=== PATIENT | male | born 1995 | race Caucasian/White ===

== ENCOUNTER → 2017-03-26 | Outpatient (CLI) | payer BC ==
--- NOTE | 2017-03-26 17:42 | REP ---
RIGHT 3RD DIGIT: Four views of the right 3rd digit were performed. There is an avulsion fracture at the anterior base of the middle phalanx which is nondisplaced. I see no other evidence of acute fracture, dislocation, or intrinsic bone disease. Signed by Kaiser Wasserman MD 03/27/2017 09:18 A
== END ==
LOC: M WUC 17:01
PROVIDERS: ATTEND Physician Assistant
DX: M79.644 Pain in right finger(s) (principal)

== ENCOUNTER → 2017-06-18 | Outpatient (CLI) | payer BC ==
[2017-06-18 16:33] LABS: BASO % 0.5 % (0.0-1.0); EOS # 0.1 10^3/uL (0.0-0.50); HEMATOCRIT 51.9 % (42.0-52.0); HEMOGLOBIN 17.4 g/dl (14.0-18.0); IMMATURE GRANULOCYTE % 0.2 % (0-3.0); LYMPH # 2.5 10^3/uL (1.5-6.5); LYMPH % 28.8 % (24.0-44.0); MEAN CORPUSCULAR HEMOGLOBIN 30.5 pg (27.0-33.0); MEAN CORPUSCULAR HGB CONC 33.5 g/dl (32.0-36.5); MEAN CORPUSCULAR VOLUME 90.9 fl (80.0-96.0); MONO # 0.7 10^3/uL (0.0-0.8); MONO % 7.7 % (0.0-5.0); NEUTROPHILS # 5.4 10^3/uL (1.8-7.7); NEUTROPHILS % 61.8 % (36.0-66.0); PLATELET COUNT, AUTOMATED 330 10^3/uL (150-450); RED BLOOD COUNT 5.71 10^6/uL (4.30-6.10); RED CELL DISTRIBUTION WIDTH 12.8 % (11.5-14.5); WHITE BLOOD COUNT 8.8 10^3/uL (4.0-10.0)
[2017-06-18 19:27] LABS: ALBUMIN 4.7 GM/DL (3.2-5.2); ALBUMIN/GLOBULIN RATIO 1.42 (1.00-1.93); ALKALINE PHOSPHATASE 84 U/L (45-117); ALT/SGPT 25 U/L (12-78); ANION GAP 8 MEQ/L (8-16); AST/SGOT 12 U/L (7-37); BILIRUBIN,TOTAL 0.4 MG/DL (0.2-1.0); BLOOD UREA NITROGEN 13 MG/DL (7-18); CARBON DIOXIDE LEVEL 26 MEQ/L (21-32); CHLORIDE LEVEL 107 MEQ/L (98-107); CREATININE FOR GFR 0.78 MG/DL (0.70-1.30); FREE T4 1.39 NG/DL (0.76-1.46); GLOMERULAR FILTRATION RATE > 60.0 (>60); GLUCOSE, FASTING 89 MG/DL (70-100); POTASSIUM SERUM 4.2 MEQ/L (3.5-5.1); SODIUM LEVEL 141 MEQ/L (136-145)
[2017-06-19 08:59] LABS: CONTROL LINE MONO INT CTR LINE PRESENT; MONO SCRN NEGATIVE (NEGATIVE)
[2017-06-21 00:07] LABS: EBV VIRAL CAPSID AG IgM <36.0 U/mL (0.0-35.9)
[2017-06-21 00:07] LABS: EBV VIRAL CAPSID AG IgG 61.8 U/mL (0.0-17.9)
== END ==
LOC: M WUC 12:18
DX: R53.83 Other fatigue (principal)
CPT/HCPCS: 84443

== ENCOUNTER → 2018-05-13 | Outpatient (REF) | payer BC ==
[2018-05-13 17:42] LABS: CHLAMYDIA DNA AMPLIFICATION NEGATIVE (NEGATIVE); GC DNA AMPLIFICATION NEGATIVE (NEGATIVE)
== END ==
LOC: M LAB REF 14:42
PROVIDERS: ATTEND Physician Assistant
DX: R30.0 Dysuria (principal)

== ENCOUNTER 2021-07-22 11:22 | Emergency (ER) | payer OTHER, BC ==
[~2021-07-22] VITALS: Ht 167.6 cm; Wt 97.7 kg
[2021-07-22] MEDS ORDERED: methocarbamoL 750 MG TAB PO ONE (14:05)
[2021-07-22] MEDS ORDERED: KETOROLAC 60MG 2ML VIAL IM ONE (14:05)
[2021-07-22] MEDS ORDERED: NAPR-837 PO (15:51)
[2021-07-22] MEDS ORDERED: METH-1165 PO (15:51)
[2021-07-22] MEDS ORDERED: ANEC4CRE3 TOP (15:51)
[2021-07-22 16:17] VITALS: BP 128/90
== END 2021-07-22 16:29 | disposition home or self-care (01) ==
LOC: M ED 11:22
DX: S16.1XXA Strain of muscle, fascia and tendon at neck level, initial encounter (principal); V49.49XA Driver injured in collision with other motor vehicles in traffic accident, initial encounter; Y92.410 Unspecified street and highway as the place of occurrence of the external cause; R07.9 Chest pain, unspecified; F17.210 Nicotine dependence, cigarettes, uncomplicated
CPT/HCPCS: 70450; 71101; 72125; 96372; 99283; J1885

== ENCOUNTER → 2021-10-05 | Outpatient (CLI) | payer BC ==
[~2021-10-05] MED LIST: ANEC4CRE3 TOP; METH-1165 PO; NAPR-837 PO
== END ==
LOC: M RAD 08:52
DX: D37.09 Neoplasm of uncertain behavior of other specified sites of the oral cavity (principal)

== ENCOUNTER → 2021-10-10 | Outpatient (CLI) | payer BC | LOC: M RAD 12:46 | DX: D37.09 Neoplasm of uncertain behavior of other specified sites of the oral cavity (principal) ==

== ENCOUNTER 2022-08-17 11:53 | Emergency (ER) | payer BC ==
[~2022-08-17] VITALS: Ht 167.6 cm; Wt 91.2 kg
[2022-08-17] MEDS ORDERED: KETOROLAC 60MG 2ML VIAL IM ONE (12:55)
[2022-08-17 13:43] VITALS: BP 161/78
== END 2022-08-17 13:45 | disposition home or self-care (01) ==
LOC: M ED 11:53
DX: S63.522A Sprain of radiocarpal joint of left wrist, initial encounter (principal); Y04.0XXA Assault by unarmed brawl or fight, initial encounter; F10.10 Alcohol abuse, uncomplicated; Y92.410 Unspecified street and highway as the place of occurrence of the external cause
CPT/HCPCS: 73110; 73130; 96372; 99284; J1885

== ENCOUNTER → 2022-08-29 | Outpatient (CLI) | payer BC | LOC: M RAD 13:53 | PROVIDERS: ATTEND Physician Assistant | DX: S52.592D Other fractures of lower end of left radius, subsequent encounter for closed fracture with routine healing (principal); M25.532 Pain in left wrist ==

== ENCOUNTER → 2022-08-29 | Outpatient (CLI) | payer BC | LOC: M SOG 08:45 | PROVIDERS: ATTEND Physician Assistant | DX: S52.592D Other fractures of lower end of left radius, subsequent encounter for closed fracture with routine healing (principal) ==

== ENCOUNTER → 2022-09-06 | Outpatient (REF) | payer BC ==
[2022-09-06 17:35] LABS: HEMATOCRIT 47.3 % (42.0-52.0); HEMOGLOBIN 15.8 g/dl (13.5-17.5); MEAN CORPUSCULAR HEMOGLOBIN 30.4 pg (27.0-33.0); MEAN CORPUSCULAR HGB CONC 33.4 g/dl (32.0-36.5); PLATELET COUNT, AUTOMATED 288 10^3/uL (150-450); WHITE BLOOD COUNT 7.6 10^3/uL (4.0-10.0)
[2022-09-06 17:57] LABS: ALKALINE PHOSPHATASE 78 U/L (46-116); ALT/SGPT 26 U/L (7.0-40); AST/SGOT 21 U/L (<34); BILIRUBIN,TOTAL 0.3 MG/DL (0.3-1.2); BLOOD UREA NITROGEN 13 MG/DL (9-23); CALCIUM LEVEL 8.5 MG/DL (8.5-10.1); CARBON DIOXIDE LEVEL 24 MMOL/L (20-31); CHLORIDE LEVEL 109 MMOL/L (98-107); CHOLESTEROL LEVEL 192 MG/DL (<200); CHOLESTEROL RISK RATIO 4.47 (<5); CREATININE FOR GFR 0.73 MG/DL (0.70-1.30); GLOMERULAR FILTRATION RATE > 60.0 (>60); GLUCOSE, FASTING 103 MG/DL (60-100); HDL CHOLESTEROL 42.9 MG/DL (>40); LDL CHOLESTEROL 115.9 MG/DL (<100); NON-HDL-C 149.1 MG/DL; POTASSIUM SERUM 4.6 MMOL/L (3.5-5.1); SODIUM LEVEL 140 MMOL/L (136-145); TOTAL PROTEIN 6.8 G/DL (5.7-8.2); TRIGLYCERIDES LEVEL 166 MG/DL (<150)
[2022-09-06 17:59] LABS: THYROID STIMULATING HORMONE 1.085 uIU/ML (0.55-4.78)
[2022-09-06 18:11] LABS: HEPATITIS B SURFACE ANTIGEN NEGATIVE (NEGATIVE)
[2022-09-08 07:07] LABS: HEPATITIS B CORE ANTIBODY IGG Negative (Negative)
== END ==
LOC: M LAB REF 16:35
PROVIDERS: ATTEND Physician Assistant
DX: Z11.59 Encounter for screening for other viral diseases (principal); Z13.220 Encounter for screening for lipoid disorders; Z13.1 Encounter for screening for diabetes mellitus; Z83.49 Family history of other endocrine, nutritional and metabolic diseases; Z11.3 Encounter for screening for infections with a predominantly sexual mode of transmission; Z72.51 High risk heterosexual behavior; E66.9 Obesity, unspecified

== ENCOUNTER → 2022-09-20 | Outpatient (REF) | payer BC ==
[2022-09-20 20:08] LABS: GC DNA AMPLIFICATION NEGATIVE (NEGATIVE)
== END ==
LOC: M LAB REF 16:12
PROVIDERS: ATTEND Physician Assistant
DX: Z11.3 Encounter for screening for infections with a predominantly sexual mode of transmission (principal)

== ENCOUNTER → 2022-09-20 | Outpatient (CLI) | payer BC | LOC: M SOG 08:58 | PROVIDERS: ATTEND Physician Assistant | DX: S52.502D Unspecified fracture of the lower end of left radius, subsequent encounter for closed fracture with routine healing (principal) ==

== ENCOUNTER → 2022-10-08 | Outpatient (CLI) | payer BC | LOC: M SOG 07:57 | PROVIDERS: ATTEND Physician Assistant | DX: S52.502D Unspecified fracture of the lower end of left radius, subsequent encounter for closed fracture with routine healing (principal) ==

== ENCOUNTER → 2022-10-18 | Outpatient (REF) | payer BC ==
[2022-10-18 19:11] LABS: GC DNA AMPLIFICATION NEGATIVE (NEGATIVE)
== END ==
LOC: M LAB REF 16:30
PROVIDERS: ATTEND Physician Assistant
DX: A56.2 Chlamydial infection of genitourinary tract, unspecified (principal)

== ENCOUNTER → 2024-06-10 | Outpatient (REF) | payer BC ==
[2024-06-10 21:20] LABS: Trichomonas vaginalis (AMP) NOT DETECTED (NEGATIVE)
[2024-06-10 21:43] LABS: GC DNA AMPLIFICATION NEGATIVE (NEGATIVE)
== END ==
LOC: M LAB REF 16:42
PROVIDERS: ATTEND Physician Assistant
DX: Z11.3 Encounter for screening for infections with a predominantly sexual mode of transmission (principal)

== ENCOUNTER 2024-06-20 14:18 | Inpatient (IN) | payer BC, OTHER ==
[~2024-06-20] VITALS: Ht 167.6 cm; Wt 101.8 kg
[~2024-06-20 14:18] MED LIST changes: +HYDROMORPHONE HCL 0.5 MG/ 0.5 ML SYRINGE IV PRN
[2024-06-20] MEDS ORDERED: ISOVUE-370 76% 100ML VIAL As Ordered ONE (16:46)
[2024-06-20 17:05] LABS: BASO % 0.5 % (0.0-1.0); EOS # 0.1 10^3/uL (0.0-0.5); EOS % 0.8 % (0.0-3.0); HEMATOCRIT 49.9 % (42.0-52.0); HEMOGLOBIN 17.4 g/dl (13.5-17.5); LYMPH # 3.4 10^3/uL (1.5-5.0); LYMPH % 44.5 % (24.0-44.0); MEAN CORPUSCULAR HEMOGLOBIN 31.5 pg (27.0-33.0); MEAN CORPUSCULAR HGB CONC 34.9 g/dl (32.0-36.5); MEAN CORPUSCULAR VOLUME 90.2 fl (80.0-96.0); MONO # 0.8 10^3/uL (0.0-0.8); MONO % 10.3 % (2.0-8.0); NEUTROPHILS # 3.4 10^3/uL (1.5-8.5); NEUTROPHILS % 43.6 % (36.0-66.0); PLATELET COUNT, AUTOMATED 344 10^3/uL (150-450); RED BLOOD COUNT 5.53 10^6/uL (4.30-6.10); WHITE BLOOD COUNT 7.7 10^3/uL (4.0-10.0)
[2024-06-20] MEDS: ONDANSETRON 4MG 2ML VIAL IV ONE (17:06)
[2024-06-20] MEDS: MORPHINE 4 MG/ML 1ML VIAL IV ONE (17:07)
[2024-06-20 17:19] LABS: INR 0.96; PROTHROMBIN TIME 13.1 SECONDS (12.5-14.5)
[2024-06-20 17:37] LABS: CK-MB VALUE MASS 2.6 NG/ML (<3.6)
[2024-06-20 17:38] LABS: BLOOD UREA NITROGEN 12 MG/DL (9-23); CALCIUM LEVEL 9.2 MG/DL (8.5-10.1); CARBON DIOXIDE LEVEL 24 MMOL/L (20-31); CHLORIDE LEVEL 106 MMOL/L (98-107); CREATININE FOR GFR 0.72 MG/DL (0.70-1.30); GLOMERULAR FILTRATION RATE > 60.0 (>60); GLUCOSE, FASTING 82 MG/DL (60-100); POTASSIUM SERUM 4.3 MMOL/L (3.5-5.1); SODIUM LEVEL 140 MMOL/L (136-145)
[2024-06-20 17:41] LABS: CPK CREATINE PHOSPHOKINASE 357 U/L (46-171); MB/CK RELATIVE INDEX 0.72 (< OR =4)
[2024-06-20] MEDS: HYDROMORPHONE HCL 0.5 MG/ 0.5 ML SYRINGE IV ONE (17:59)
[2024-06-20] MEDS ORDERED: HYDROMORPHONE HCL 0.5 MG/ 0.5 ML SYRINGE IV PRN (19:20)
[2024-06-20] MEDS ORDERED: MAALOX 30 ML SUSP *UDC PO PRN (19:40)
[2024-06-20] MEDS ORDERED: MOM 30ML SUSPENSION UDC PO PRN (19:40)
[2024-06-20] MEDS ORDERED: ACETAMINOPHEN 325 MG TAB PO PRN (19:40)
[2024-06-20] MEDS: HYDROMORPHONE HCL 0.5 MG/ 0.5 ML SYRINGE IV PRN (20:25)
[2024-06-20 21:30] VITALS: BP 152/102; TEMP 97.1; O2SAT 96
[2024-06-20 22:02] LABS: AMPHETAMINES LEVEL URINE NEGATIVE (NEGATIVE); BARBITURATES URINE NEGATIVE (NEGATIVE); BENZODIAZEPINES URINE NEGATIVE (NEGATIVE); COCAINE METABOLITE URINE NEGATIVE (NEGATIVE); METHADONE URINE NEGATIVE (NEGATIVE)
[2024-06-20 22:03] LABS: PHENCYCLIDINE URINE NEGATIVE (NEGATIVE)
[2024-06-20 22:04] LABS: CANNABINOIDS URINE POSITIVE (NEGATIVE); OPIATES URINE POSITIVE (NEGATIVE)
[2024-06-20] MEDS ORDERED: LEXA1TAB PO (22:29)
[2024-06-20] MEDS ORDERED: HOME MED LIST COMPLETE! XX SCH (22:30)
[2024-06-20] MEDS: NORCO, ANEXSIA 5/325MG TABLET (HYDROcodone/ACETAMINOPHEN) PO ONE (22:38)
[2024-06-20] MEDS: LORazepam 2 MG/ML 1ML VIAL IV STA (22:39)
[2024-06-20] MEDS: DOCUSATE SODIUM 100MG CAPSULE PO SCH (22:39)
[2024-06-20] MEDS: ENOXAPARIN 100MG/1ML SYRINGE (J1650 PER 10MG) SC SCH (22:40)
[2024-06-20] MEDS: LIDOCAINE 5% (LIDODERM) PATCH TD ONE (22:40)
[2024-06-21 00:50] VITALS: BP 147/87; TEMP 97; O2SAT 96
[2024-06-21] MEDS: NORCO, ANEXSIA 5/325MG TABLET (HYDROcodone/ACETAMINOPHEN) PO PRN (03:08)
[2024-06-21 03:10] VITALS: BP 148/94; TEMP 97.1; O2SAT 95
[2024-06-21 06:09] LABS: HEMATOCRIT 47.7 % (42.0-52.0); HEMOGLOBIN 16.3 g/dl (13.5-17.5); MEAN CORPUSCULAR HEMOGLOBIN 30.6 pg (27.0-33.0); MEAN CORPUSCULAR HGB CONC 34.2 g/dl (32.0-36.5); MEAN CORPUSCULAR VOLUME 89.7 fl (80.0-96.0); PLATELET COUNT, AUTOMATED 280 10^3/uL (150-450); RED BLOOD COUNT 5.32 10^6/uL (4.30-6.10); WHITE BLOOD COUNT 7.3 10^3/uL (4.0-10.0)
[2024-06-21 06:40] LABS: CHOLESTEROL RISK RATIO 6.03 (<5); HDL CHOLESTEROL 32.3 MG/DL (>40); LDL CHOLESTEROL 118.3 MG/DL (<100); NON-HDL-C 162.7 MG/DL
[2024-06-21 06:41] LABS: BLOOD UREA NITROGEN 11 MG/DL (9-23); CALCIUM LEVEL 8.9 MG/DL (8.5-10.1); CARBON DIOXIDE LEVEL 25 MMOL/L (20-31); CHLORIDE LEVEL 105 MMOL/L (98-107); CREATININE FOR GFR 0.72 MG/DL (0.70-1.30); GLOMERULAR FILTRATION RATE > 60.0 (>60); GLUCOSE, FASTING 97 MG/DL (60-100); POTASSIUM SERUM 4.1 MMOL/L (3.5-5.1); SODIUM LEVEL 138 MMOL/L (136-145)
[2024-06-21 06:43] LABS: THYROID STIMULATING HORMONE 2.175 uIU/ML (0.55-4.78)
[2024-06-21] MEDS: APIXABAN 5 MG TAB (ELIQUIS) PO SCH (08:12)
[2024-06-21 08:40] VITALS: BP 139/94; TEMP 98.2; O2SAT 97
[2024-06-21] MEDS: KETOROLAC 30 MG/ML 1ML VIAL IV PRN (09:25)
[2024-06-21] MEDS ORDERED: ELIQ5TAB PO (11:09)
[2024-06-21] MEDS ORDERED: HYDR-3715 PO (11:09)
[2024-06-21] MEDS ORDERED: NEUR300C PO (11:27)
[2024-06-21] MEDS ORDERED: LIDO1PAD TOP (11:27)
[2024-06-21] MEDS ORDERED: DICL100G10 TOP (11:27)
[2024-06-21] MEDS ORDERED: OXYC1TAB23 PO (11:27)
[2024-06-21] MEDS ORDERED: NARC1SPR NARES (11:27)
[2024-06-28] MEDS ORDERED: APIXABAN 5 MG TAB (ELIQUIS) PO SCH (09:00)
== END 2024-06-21 12:05 | disposition home or self-care (01) | DRG 197 ==
LOC: M ED 14:18 → M ED INP 19:36 → M MS4PR 06-21 08:32
PROVIDERS: ADMIT Student in an Organized Health Care Education/Training Program; ATTEND Student in an Organized Health Care Education/Training Program
DX: I82.622 Acute embolism and thrombosis of deep veins of left upper extremity (principal); K21.9 Gastro-esophageal reflux disease without esophagitis; K59.00 Constipation, unspecified

== ENCOUNTER → 2024-07-05 | Outpatient (CLI) | payer OTHER ==
[~2024-07-05] MED LIST changes: +DICL100G10 TOP; +ELIQ5TAB PO; +HYDR-3715 PO; -HYDROMORPHONE HCL 0.5 MG/ 0.5 ML SYRINGE IV PRN; +LEXA1TAB PO; +LIDO1PAD TOP; +NARC1SPR NARES; +NEUR300C PO; +OXYC1TAB23 PO
== END ==
LOC: M RAD 15:22
PROVIDERS: ATTEND Physician Assistant
DX: Z86.718 Personal history of other venous thrombosis and embolism (principal)

== ENCOUNTER → 2024-08-31 | Outpatient (REF) | payer OTHER ==
[2024-08-31 20:28] LABS: GC DNA AMPLIFICATION NEGATIVE (NEGATIVE)
[2024-09-02 16:06] LABS: Trichomonas vaginalis (AMP) NOT DETECTED (NEGATIVE)
== END ==
LOC: M LAB REF 17:11
PROVIDERS: ATTEND Physician Assistant
DX: Z11.3 Encounter for screening for infections with a predominantly sexual mode of transmission (principal)

== ENCOUNTER → 2024-12-07 | Outpatient (REF) | payer OTHER ==
[2024-12-07 19:18] LABS: ALT/SGPT 30 U/L (7.0-40); AST/SGOT 22 U/L (<34); CALCIUM LEVEL 9.9 MG/DL (8.5-10.1); CARBON DIOXIDE LEVEL 25 MMOL/L (20-31); CHLORIDE LEVEL 105 MMOL/L (98-107); CHOLESTEROL LEVEL 264 MG/DL (<200); CHOLESTEROL RISK RATIO 4.70 (<5); CREATININE FOR GFR 0.82 MG/DL (0.70-1.30); GLOMERULAR FILTRATION RATE > 90.0 (>60); LDL CHOLESTEROL 164.9 MG/DL (<100); NON-HDL-C 207.9 MG/DL; POTASSIUM SERUM 4.3 MMOL/L (3.5-5.1); SODIUM LEVEL 143 MMOL/L (136-145); TRIGLYCERIDES LEVEL 215 MG/DL (<150)
[2024-12-07 19:49] LABS: HIV 1&2 SCREEN NEGATIVE (NEGATIVE)
[2024-12-07 19:57] LABS: HEPATITIS C VIRUS ABY INDEX < 0.02 INDEX (<0.8)
[2024-12-07 20:06] LABS: Trichomonas vaginalis (AMP) NOT DETECTED (NEGATIVE)
[2024-12-07 20:29] LABS: GC DNA AMPLIFICATION NEGATIVE (NEGATIVE)
== END ==
LOC: M LAB REF 17:26
PROVIDERS: ATTEND Nurse Practitioner Family
DX: Z11.3 Encounter for screening for infections with a predominantly sexual mode of transmission (principal); Z29.81 Encounter for HIV pre-exposure prophylaxis; Z11.59 Encounter for screening for other viral diseases; E66.9 Obesity, unspecified; Z13.220 Encounter for screening for lipoid disorders; Z13.1 Encounter for screening for diabetes mellitus; Z68.36 Body mass index [BMI] 36.0-36.9, adult; N89.9 Noninflammatory disorder of vagina, unspecified

== ENCOUNTER 2025-01-09 02:30 | Emergency (ER) | payer OTHER ==
[~2025-01-09] VITALS: Ht 182.9 cm; Wt 100.0 kg
[2025-01-09] MEDS: MORPHINE 4 MG/ML 1 ML VIAL IV PRN (08:00)
[2025-01-09] MEDS: ONDANSETRON 4MG 2ML VIAL IV ONE (08:00)
[2025-01-09] MEDS: AMPICILLIN SOD/SULBACTAM SOD 3 GM in DEXTROSE 5% (D5W) MINI-BAG PLU 100 ML IV ONE (08:05)
[2025-01-09 08:32] LABS: PLATELET COUNT, AUTOMATED 373 10^3/uL (150-450)
[2025-01-09] MEDS: TETANUS/DIPHTH/ACEL. PERTUSSIS 0.5 ML SYR IM.IMMUN ONE (09:08)
[2025-01-09 09:31] LABS: ALT/SGPT 33 U/L (7.0-40); AST/SGOT 34 U/L (<34); CALCIUM LEVEL 9.1 MG/DL (8.5-10.1); CARBON DIOXIDE LEVEL 22 MMOL/L (20-31); CHLORIDE LEVEL 104 MMOL/L (98-107); CREATININE FOR GFR 0.74 MG/DL (0.70-1.30); GLOMERULAR FILTRATION RATE > 90.0 (>60); POTASSIUM SERUM 4.5 MMOL/L (3.5-5.1); SODIUM LEVEL 137 MMOL/L (136-145)
[2025-01-09 09:45] VITALS: BP 140/67; TEMP 98.8; O2SAT 98
== END 2025-01-09 09:52 | disposition short-term general hospital (02) ==
LOC: M ED 02:30
DX: S02.651B Fracture of angle of right mandible, initial encounter for open fracture (principal); S02.652B Fracture of angle of left mandible, initial encounter for open fracture; Y04.0XXA Assault by unarmed brawl or fight, initial encounter; J34.1 Cyst and mucocele of nose and nasal sinus; Z79.899 Other long term (current) drug therapy; Y92.89 Other specified places as the place of occurrence of the external cause; Y93.89 Activity, other specified; Y99.9 Unspecified external cause status
CPT/HCPCS: 70450; 70486; 72125; 80053; 85027; 96365; 96366; 96375; 96376; 99284; J0295; J2405

== ENCOUNTER → 2025-03-09 | Outpatient (REF) | payer OTHER ==
[2025-03-09 17:15] LABS: CALCIUM LEVEL 8.7 MG/DL (8.5-10.1); CARBON DIOXIDE LEVEL 27 MMOL/L (20-31); CHLORIDE LEVEL 108 MMOL/L (98-107); CHOLESTEROL LEVEL 213 MG/DL (<200); CHOLESTEROL RISK RATIO 4.87 (<5); CREATININE FOR GFR 0.78 MG/DL (0.70-1.30); GLOMERULAR FILTRATION RATE > 90.0 (>60); LDL CHOLESTEROL 130.1 MG/DL (<100); NON-HDL-C 169.3 MG/DL; POTASSIUM SERUM 4.3 MMOL/L (3.5-5.1); SODIUM LEVEL 144 MMOL/L (136-145); TRIGLYCERIDES LEVEL 196 MG/DL (<150)
[2025-03-09 17:20] LABS: HEPATITIS B SURFACE ANTIBODY POSITIVE (POSITIVE)
[2025-03-09 17:45] LABS: HIV 1&2 SCREEN NEGATIVE (NEGATIVE)
[2025-03-09 17:53] LABS: HEPATITIS C VIRUS ABY INDEX < 0.02 INDEX (<0.8)
[2025-03-14 11:06] LABS: HIV-1 RNA ULTRA 1 <20 copies/mL (.)
== END ==
LOC: M LAB REF 16:34
PROVIDERS: ATTEND Nurse Practitioner Family
DX: Z29.81 Encounter for HIV pre-exposure prophylaxis (principal); Z11.4 Encounter for screening for human immunodeficiency virus [HIV]; Z71.89 Other specified counseling